=== PATIENT | female | born 1955 | race Caucasian/White ===

== ENCOUNTER 2023-07-18 12:29 | Outpatient (CLI) | payer MEDICARE, OTHER, SELFPAY | END 2023-07-18 12:30 | disposition home or self-care (01) | LOC: LKVREF 12:31 | PROVIDERS: PCP Physician Assistant Medical; Visit Provider Physician Assistant Medical | DX: E03.9 Hypothyroidism, unspecified (principal); R53.82 Chronic fatigue, unspecified; M85.80 Other specified disorders of bone density and structure, unspecified site; Z86.69 Personal history of other diseases of the nervous system and sense organs; Z13.1 Encounter for screening for diabetes mellitus; Z13.6 Encounter for screening for cardiovascular disorders | CPT/HCPCS: 80053; 80061; 82306; 82607; 84443 ==

== ENCOUNTER 2024-07-25 09:57 | Outpatient (CLI) | payer MEDICARE, OTHER, SELFPAY | END 2024-07-25 09:58 | disposition home or self-care (01) | PROVIDERS: PCP Physician Assistant Medical; Visit Provider Physician Assistant Medical | DX: K52.832 Lymphocytic colitis (principal); R53.83 Other fatigue; E03.9 Hypothyroidism, unspecified | CPT/HCPCS: 80053; 80061; 82306; 82607; 83540; 83550; 84443; 86140 ==

== ENCOUNTER 2024-07-25 13:16 | Outpatient (CLI) | payer MEDICARE, OTHER, SELFPAY ==
--- NOTE | 2024-07-25 13:30 | CRLHL7_ITS ---
For Patients: As a result of the Century Cures Act, medical imaging exams and procedure reports are released immediately into your electronic medical record. You may view this report before your referring provider. If you have questions, please contact your health care provider. DEXA BONE MINERAL DENSITY STUDY Reason for exam: Osteoporosis. Current height (inches): 62 Weight (lbs.): 130 Menopause age: 49 Ethnicity: White 1. Have you had a previous hip or vertebral fracture? No. 2. Have you had any fractures during your adult life which did not result from significant trauma (e.g., auto accident)? Yes. 3. Did either of your parents have a hip fracture? No. 4. Do you smoke? No. 5. Have you ever taken Glucocorticoids? No. 6. Do you have rheumatoid arthritis? No. 7. Do you have secondary osteoporosis? No. 8. Do you drink 3 or more alcoholic drinks per day? No. 9. Are you being treated for osteoporosis? No. 10. Have you ever taken any of the following medications: Actonel, Evista, Fosamax, Miacalcin, Reclast, Boniva, Forteo, HRT (i.e., estrogen/hormone therapy), Protelos, Prolia, Vitamin D, Calcium, other ??? please specify. ANSWER: Yes; Fosamax, Boniva, vitamin D, calcium. 11. Do you have any of the following medical conditions: Anorexia or bulimia, asthma or emphysema, end stage renal disease, hyperparathyroidism, any seizure disorders, cancer, inflammatory bowel diseases, hysterectomy, other ??? please specify. ANSWER: Yes; Inflammatory bowel disease, hysterectomy. 12. What was your maximum height (inches)? 63. 13. Do you perform weightbearing exercise regularly? Yes. 14. Do you regularly consume dairy products? Yes. 15. Do you drink caffeinated beverages? Yes. 16. At what age did your period start? 13. 17. Are you premenopausal? No. 18. How many full-term pregnancies have you had? 3. 19. Have you ever missed your period for more than 6 months in a row (not including or menopause)? Not provided. TECHNIQUE: Bone mineral density study was performed using the [employer]. FINDINGS: The results of the study expressed as bone mineral density (BMD) are as follows: Lumbar Spine L1 to L4: BMD: 0.862 g/cm2. T-score: -1.7. Z-score: 0.3. Neck Left: BMD: 0.563 g/cm2. T-score: -2.6. Z-score: -0.9. Right: BMD: 0.586 g/cm2. T-score: -2.4. Z-score: -0.7. Total Left: BMD: 0.733 g/cm2. T-score: -1.7. Z-score: -0.3. Right: BMD: 0.672 g/cm2. T-score: -2.2. Z-score: -0.8. IMPRESSION: Osteoporosis. COMPARISON: Compared with scan of 01/18/2018, the bone mineral density has decreased by 3.7% at the spine and increased by 0.8% at the hip. *Comparison exams done prior to 02/2020 were performed on different unit, [employer]. LUL RAMIREZ M.D. Diagnostic Radiologist [email or web address] Transcribed: 10:[address]/Dictated by: Lul Ramirez MD @ 07/26/2024 8:34:00 AM (Electronically Signed)
--- NOTE | 2024-07-25 14:00 | CRLHL7_ITS ---
For Patients: As a result of the Century Cures Act, medical imaging exams and procedure reports are released immediately into your electronic medical record. You may view this report before your referring provider. If you have questions, please contact your health care provider. BILATERAL SCREENING MAMMOGRAM WITH COMPUTER-AIDED DETECTION AND TOMOSYNTHESIS TECHNIQUE: CC and MLO views were obtained. These mammographic images have been obtained using full-field digital technique. These mammographic images were interpreted with the benefit of computer-aided detection. Breast Tomosynthesis was used in this interpretation. COMPARISON FILM: 03/16/19, 01/18/18, 04/08/15. FINDINGS: There are scattered areas of fibroglandular density. IMPRESSION: There is no radiographic evidence for malignancy. ASSESSMENT: BI-RADS Category 1: Negative RECOMMENDATION: Routine screening mammogram in 1 year. A lay language report of this examination will be provided to the patient. Lul Adhikari M.D. Diagnostic Radiologist [email or web address] SP/Dictated by: Llu Adhikari MD @ 07/26/2024 10:18:00 AM (Electronically Signed)
== END 2024-07-25 13:17 | disposition home or self-care (01) ==
PROVIDERS: PCP Physician Assistant Medical; Visit Provider Physician Assistant Medical
DX: Z00.00 Encounter for general adult medical examination without abnormal findings (principal); R53.83 Other fatigue; Z13.6 Encounter for screening for cardiovascular disorders; Z13.21 Encounter for screening for nutritional disorder; Z13.820 Encounter for screening for osteoporosis; Z12.31 Encounter for screening mammogram for malignant neoplasm of breast; M81.0 Age-related osteoporosis without current pathological fracture; M85.89 Other specified disorders of bone density and structure, multiple sites; Z78.0 Asymptomatic menopausal state
CPT/HCPCS: 77063; 77067; 77080; 80053; 80061; 82306; 82607; 84443; 86140

== ENCOUNTER 2024-09-04 12:57 | Outpatient (CLI) | payer MEDICARE, OTHER, SELFPAY | END 2024-09-04 12:58 | disposition home or self-care (01) | LOC: NFLDREF 09-05 10:44 | PROVIDERS: PCP Physician Assistant Medical; Referring Provider Physician Assistant Medical; Visit Provider Physician Assistant Medical | DX: E55.9 Vitamin D deficiency, unspecified (principal); D64.9 Anemia, unspecified | CPT/HCPCS: 82306; 83540; 83550; 86140 ==

== ENCOUNTER 2024-11-13 11:32 | Emergency (ER) | payer MEDICARE, OTHER, SELFPAY ==
--- OUTSIDE RECORDS SUMMARY | 2024-11-13 11:35 | XMS_ITS | Clinical Summary ---
[facility] Address [address] [address] Care Team Providers Care Bisque Ware Dipper Name Role Phone Tasia Wilder MD Primary Care Provider Source Comments You are receiving this document as you are listed as the primary care provider,follow-up provider, or the patient has been referred to you for consultation.This is in compliance with the Medicare and[facility], [facility] EHR Incentive Program,which states Providers who transition their patient to another setting of careor provider of care or refers their patient to another provider of care shouldprovide summary care record for each transition of care or referral. Kickboard Allergies Active Allergy Reactions Criticality Noted Date Comments Sulfa Antibiotics Rash 09/17/2017 Medications Ibandronate Sodium (BONIVA) 150 MG tablet Take 1 Tab by mouth every 4 weeks. 3 Tab 3 09/17/2017 Active estrogens, conjugated, (PREMARIN) 0.3 MG tablet Take 1 Tab by mouth daily. 90 Tab 3 09/17/2017 Active levothyroxine (SYNTHROID) 125 MCG tablet Take 1 Tab by mouth daily. 90 Tab 3 09/17/2017 Active polyethylene glycol 3350 (MIRALAX) powder Take 17 g by mouth two times a day. 1 day prior to test-between 4-6pm. Mix 8.3oz of Miralax with 64oz of PowerAde. Drink 1 8oz glass each 15min until gone 09/17/2017 Active calcium carbonate-vitam in D (CALCIUM 600 + D) 600-400 MG-UNIT tablet Take 1 Tab by mouth two times a day. 09/17/2017 Active citalopram (CELEXA) 10 MG tablet Take 1 Tab by mouth daily. 90 Tab 3 09/17/2017 Active aspirin EC (ASPIR-LOW) 81 MG enteric coated tablet Take 1 Tab by mouth daily. 3 09/17/2017 Active Multiple Vitamin (MULTI-DAY) Take by mouth. 09/17/2017 Active omega-3 fatty acids (MAXEPA,FISHOIL ) 1000 MG capsule Take 2 Caps by mouth daily. 09/17/2017 Active Ascorbic Acid (VITAMIN C) 500 MG CAPS Take by mouth. 09/17/2017 Active oxyCODONE-aceta minophen (PERCOCET) 5-325 MG tablet Take 1-2 Tabs by mouth every 6 hours as needed for Pain. 10 Tab 09/17/2017 Active Active Problems No known active problems Immunizations Immunization Administration Dates Next Due Fluzone Qiv Multidose Vial 0 .25 (6-35 Mos) 06/28/2017 Influenza (Flucelvax), Prese rv Free QIV 07/01/2019 Influenza IIV4 (Quadrivalent ) Fluad, 65+ Yrs 06/29/2023,07/13/2021 Influenza IIV4 (Quadrivalent ) Fluzone, 65+ Yrs 07/03/2022 Moderna Bivalent 12+ 07/03/2022 Moderna COVID-19 12+ 08/04/2023 Moderna Monovalent 12+ 03/06/2022,2020,09/22/2021,2020,12/12/2020 PCV13 (Prevnar) 03/04/2021 PCV20 (Thrneae83) 07/18/2023 Td (7+ yrs) 07/18/2023,07/26/2019(Deferred: Other) Zoster, Unspecified Formulation 07/26/2019(Defer red: Other) Social History Tobacco Use Types Packs/Day Years Used Date Smoking Tobacco: Never Smokeless Tobacco: Never Comments Unknown Sex and Gender Information Value Date Recorded Sex Assigned at Not on file Legal Sex Female 4:36 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 Gender Identity Not on file Sexual Orientation Not on file Last Filed Vital Signs Vital Sign Reading Time Taken Comments Blood Pressure 141/76 09/17/2017 3:33 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 Pulse 67 09/17/2017 3:33 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 Temperature 36.3 C (97.3 F) 09/17/2017 3:33 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 Respiratory Rate 16 09/17/2017 3:33 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 Oxygen Saturation 99% 09/17/2017 3:33 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 Inhaled Oxygen Concentration - - Weight 65.8 kg (145 lb) 09/17/2017 3:33 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 s tated weight Height 158.8 cm (5' 2.5) 09/17/2017 3:33 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 stated height Body Mass Index 26.1 09/17/2017 3:33 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 Plan of Treatment Health Maintenance Due Date Last Done Comments Colon Cancer Screening Plan Due 1955 Hep C Screening (Preventive Services) 1955 Medicare Annual Wellness Visit 1955 Mammogram 1955 Cholesterol 01/26/2001 Zoster/Shingles (1 of 2) 01/26/2006 Dexa 01/26/2021 DTaP/Tdap/Td (1 - Tdap) 07/19/2023 07/18/2023 COVID-19 Vaccine ( season) 2024 08/04/2023, 07/03/2022, 03/06/2022, Additional history exists Influenza (#1) 2024 06/29/2023, 04/2022, 07/13/2021, Additional history exists RSV (1 - 1-dose 75+ series) 01/26/2031 Pneumococcal 50+ Yrs Completed 07/18/2023, 03/04/20 21 HepA Aged Out No longer eligi ble based on patient's age to complete this topic HepB Aged Out No longer eligi ble based on patient's age to complete this topic Hib Aged Out No longer eligi ble based on patient's age to complete this topic IPV (Polio) Aged Out No longer eligi ble based on patient's age to complete this topic MCV4 Aged Out No longer eligi ble based on patient's age to complete this topic Meningococcal B Aged Out No longer el igible based on patient's age to complete this topic Insurance MEDICARE [facility] Care Teams Bisque Ware Dipper Relationship Specialty Start Date End Date Tasia Wilder MD [address] [place] [address] PCP - General Family Practice 08/15/17
--- OUTSIDE RECORDS SUMMARY | 2024-11-13 11:35 | XMS_ITS | Encounter Summary ---
Author Organization [facility] Address [address] [place] [address] Care Team Providers Care Heading Up Machine Operator Name Role Phone Tasia Wilder MD Primary Care Provider [phone] Encounter Details Date Type Department Care Team (Late st Contact Info) Description 09/17/2017 Correspondence [facility] [address] [facility] 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
--- NOTE | 2024-11-13 11:51 | CRLHL7_ITS ---
For Patients: As a result of the 21st Century Cures Act, medical imaging exams and procedure reports are released immediately into your electronic medical record. You may view this report before your referring provider. If you have questions, please contact your health care provider. Indication: Vertigo, head pounding Technique: MRI Brain: Multiplanar multisequence MRI brain, IAC protocol, obtained pre and post contrast. A total of 15 mL Dotarem IV contrast was used. MRA Head: 3D [id number] MR angiogram of the [id number] with 3D MIP projections were submitted. Comparison: None Findings: MRI Brain: No evidence for recent hemorrhage or infarct. No midline shift, hydrocephalus or herniation. Ventricles and cortical sulci are age-appropriate in configuration. Scattered small foci of FLAIR hyperintensity throughout the cerebral white matter, typical of migraine headaches or chronic microangiopathy. No pathologic brain parenchymal enhancement. No focal mass or suspicious lesion identified within the inner ear, internal auditory canals, or cerebellopontine angle cisterns. A branch of the left anterior inferior cerebellar artery contacts/slightly dorsally displaces the left 8th cranial nerve complex near the level of the porus acusticus. There is no pathologic enhancement of the 7th or 8th cranial nerves on either side. Midline structures are unremarkable. Grossly preserved major intracranial arterial flow voids. There is small cystic expansion along the lateral floor of the right Meckel`s cave, matching CSF signal, without associated enhancement or marrow signal change. No obstructive paranasal sinus disease. Trace nonspecific fluid at the right greater than left mastoid tips. Bilateral lens implants. MRA Head: The intracranial segments of the internal carotid arteries and basilar artery are widely patent. The anterior, middle and posterior cerebral arteries and proximal branches are unremarkable. No discrete aneurysm identified. No high-flow AV malformation is seen. Impression: MRI brain: 1. No evidence of acute intracranial abnormality. 2. Small foci of nonspecific white matter signal change, potentially sequela of migraine headaches or mild chronic microangiopathy. 3. Tortuous branch of the left anterior inferior cerebellar artery contacts/slightly dorsally displaces the left 8th cranial nerve complex at the level of the porus acusticus, of indeterminate clinical significance. 4. Cystic expansion along the lateral floor of the right Meckel`s cave, suggestive of tiny meningocele. MRA head: 1. No intracranial large vessel occlusion, high-grade stenosis, aneurysm or high-flow vascular malformation. Dictated by Ilana Miramontes MD @ 11/13/2024 2:31:15 PM (Electronically Signed)
[2024-11-13 11:54] VITALS: BP 147/81; PULSE 70; RESP 18; TEMP 36.5; O2SAT 97; BMI 23.5
--- NOTE | 2024-11-13 12:42 | ED_ITS ---
HPI - General Adult General Date Seen: 11/13/24 Chief complaint: Ear/Nose/Throat Problem Stated complaint: Dizziness, ear pain Time Seen by Provider: 11/13/24 11:35 History of Present Illness HPI narrative: Patient is a 69-year-old who presented to ENT today and sent here for further evaluation. She has been having increased dizziness/vertigo for the past week associated with a pounding sensation in her head. She has chronic tinnitus which is unchanged. She has had longstanding vertigo but she says it is quite a bit worse and this pounding sensation is new. She has not had other neurologic changes. Every once a while she feels like her vision is a little blurry but she has not had diplopia or loss of vision. She was sent here for MRI imaging to rule out acute process such as stroke, aneurysm, mass. Past medical history is reviewed, medications reviewed. She is not anticoagulated. She denies history of prior stroke or atrial fibrillation, coronary artery disease or diabetes. She does have a history of hypertension. Related Data Home Medications ?Medication ?Instructions ?Recorded ?Confirmed hyoscyamine sulfate 0.125 mg 0.125 mg sublingual Q4H PRN 07/12/22 11/13/24 sublingual tablet medical cannabis inhalation 07/12/22 11/13/24 Previous Rx's ?Medication ?Instructions ?Recorded conjugated estrogens 0.3 mg tablet 0.3 mg PO QDAY #90 tabs 07/25/24 (Premarin) levothyroxine 25 mcg tablet 50 mcg (2 x 25 mcg) PO QDAY #90 07/25/24 (Synthroid) tabs lisinopril 10 1 tab PO DAILY #90 tabs 07/25/24 mg-hydrochlorothiazide 12.5 mg tablet omeprazole 20 mg capsule,delayed 20 mg PO DAILY #90 caps 07/25/24 release ondansetron 4 mg disintegrating 4 mg translingual Q4-6H PRN nausea 07/25/24 tablet and vomiting #30 tabs cholecalciferol (vitamin D3) 1,250 1,250 mcg PO QWEEK #12 caps 07/30/24 mcg (50,000 unit) capsule ibandronate 150 mg tablet 150 mg PO MONTHLY #3 tabs 07/30/24 meclizine 25 mg tablet 25 mg PO TID PRN #15 tabs 11/13/24 Allergies Allergy/AdvReac Type Severity Reaction Status Date / Time Sulfa (Sulfonamide Allergy Verified 11/13/24 10:11 Antibiotics) Review of Systems Status of ROS: Reports: 10 or more systems reviewed and unremarkable except as noted in History and below [facility] Medical History (Updated 11/13/24 @ 15:01 by Simran Ashraf MD) Lymphocytic colitis ?K52.832 - Lymphocytic colitis (ICD-10) Major depressive disorder with single episode ?F32.9 - Major depressive disorder, single episode, unspecified (ICD-10) History of iron deficiency anemia ?Z86.2 - Personal history of diseases of the blood and blood-forming organs and certain disorders involving the immune mechanism (ICD-10) History of colonic polyps ?Z86.010 - Personal history of colonic polyps (ICD-10) Surgical History (Updated 05/04/22 @ 10:48 by Irving Anne) History of tubal ligation ?Z98.51 - Tubal ligation status (ICD-10) History of tonsillectomy ?Z90.89 - Acquired absence of other organs (ICD-10) History of sinus surgery ?Z98.890 - Other specified postprocedural states (ICD-10) History of hysterectomy ?Z90.710 - Acquired absence of both cervix and uterus (ICD-10) History of foot surgery ?Z98.890 - Other specified postprocedural states (ICD-10) Family History (Updated 07/18/23 @ 12:23 by Anne-Marie Vega PA-C) Father Lung cancer Mother CHF (congestive heart failure) Myocardial infarction Maternal Grandmother Colon cancer Breast cancer Sister Diabetes Social History (Updated 07/18/23 @ 12:22 by Anne-Marie Vega PA-C) Narrative: ( tami)- he had hx of kidney transplant. 3 adult kids, 2 step children Never tobacco user Alcohol: 3-5 glasses per week Smoking Status: Never smoker How often do you have a drink containing alcohol: never AUDIT-C Alcohol total score: 0 Non-prescribed substance use: denies use service: No Exam Narrative: Exam Narrative: Vital signs reviewed In general, alert, nontoxic elderly woman. She looks comfortable. Head: Normocephalic, atraumatic. Eyes: Sclera clear. She is status post cataract surgery bilaterally, pupils are not very reactive bilaterally. Extraocular movements are full, no nystagmus. ENT: Mucous membranes moist. Tongue is midline. Neck: Supple without adenopathy. Heart: Regular rate and rhythm without murmur. Lungs: Clear. No increased work of breathing, crackles or wheezes. Abdomen: Soft, nontender to palpation. Extremities: Well perfused, pulses intact. No significant edema. Neurologic: Alert, conversant. Speech fluent, face symmetric. Moves all extremities equally. Gait is stable. Cerebellar function intact finger-nose testing. Skin: Warm, dry well perfused. Affect: Normal. Const: Vital Signs, click to edit/add: Vital Signs - 24 hr 11/13/24 11:54 Temperature 97.7 F Pulse Rate [Pulse Oximeter] 70 Respiratory Rate 18 Blood Pressure [Ri ght Upper Arm] 147/81 H Pulse Oximetry 97 Oxygen Delivery Me thod Room Air Course Course ED Course: Will place an IV, MRI with and without contrast as well as MR angiogram of the head ordered. Will try some meclizine to see if that helps her symptomatic Keila. She has been taking Zofran at home. She feels improved after meclizine. Ambulatory without difficulty. MRI obtained and report reviewed. No significant findings, no evidence of stroke, mass, hemorrhage or aneurysm. Discussed with Dr. Kenney briefly, his office will contact her regarding follow-up. She is comfortable with discharge home. Return as needed for severe symptoms, inability to manage at home or other worsening. Vital Signs Vital signs: Initial Vital Signs Temperature 97.7 F 11/13/24 11:54 Temperature Source Temporal Artery Scan 11/13/24 11:54 Pulse Rate 70 11/13/24 11:54 Pulse Rhythm Regular 11/13/24 11:54 Respiratory Rate 18 11/13/24 11:54 Blood Pressure 147/81 H 11/13/24 11:54 Blood Pressure Mean 103 11/13/24 11:54 Pulse Oximetry 97 11/13/24 11:54 Oxygen Delivery Method Room Air 11/13/24 11:54 Vital Signs Temperature 97.7 F 11/13/24 11:54 Pulse Rate 70 11/13/24 11:54 Respiratory Rate 18 11/13/24 11:54 Blood Pressure 147/81 H 11/13/24 11:54 Pulse Oximetry 97 11/13/24 11:54 Oxygen Delivery Method Room Air 11/13/24 11:54 Temperature 97.7 F 11/13/24 11:54 Pulse Rate 70 11/13/24 11:54 Respiratory Rate 18 11/13/24 11:54 Blood Pressure 147/81 H 11/13/24 11:54 Pulse Oximetry 97 11/13/24 11:54 Oxygen Delivery Method Room Air 11/13/24 11:54 Medications Administered Medications: Discontinued Medications Generic Name Dose Route Start Last Admin Trade Name Freq PRN Reason Stop Dose Admin Meclizine HCl 25 mg 11/13/24 12:45 11/13/24 13:14 Meclizine Hcl 25 Mg Tablet PO 11/13/24 12:46 25 mg ONCE ONE Administration Medical Decision Making Imaging Data MR Brain: Attestation: I have reviewed the pertinent imaging results. Radiologist's impression: [place] [address] Diagnostic Imaging Report Patient: Maddison Birch MR#: [id number] : 1955 Acct:[id number] Loc: ED Service Date: 11/13/[address]: Ordering Physician: Simran Ashraf M.D. Date of Service: 11/13/24 Procedure(s): MR head/brain wo/w con Accession Number(s): [id number] cc: Simran Ashraf M.D.; Anne-Marie CARRION~ For Patients: As a result of the Cures Act, medical imaging exams and procedure reports are released immediately into your electronic medical record. You may view this report before your referring provider. If you have questions, please contact your health care provider. Indication: Vertigo, head pounding Technique: MRI Brain: Multiplanar multisequence MRI brain, IAC protocol, obtained pre and post contrast. A total of 15 mL Dotarem IV contrast was used. MRA Head: 3D [id number] MR angiogram of the [id number] with 3D MIP projections were submitted. Comparison: None Findings: MRI Brain: No evidence for recent hemorrhage or infarct. No midline shift, hydrocephalus or herniation. Ventricles and cortical sulci are age-appropriate in configuration. Scattered small foci of FLAIR hyperintensity throughout the cerebral white matter, typical of migraine headaches or chronic microangiopathy. No pathologic brain parenchymal enhancement. No focal mass or suspicious lesion identified within the inner ear, internal auditory canals, or cerebellopontine angle cisterns. A branch of the left anterior inferior cerebellar artery contacts/slightly dorsally displaces the left 8th cranial nerve complex near the level of the porus acusticus. There is no pathologic enhancement of the 7th or 8th cranial nerves on either side. Midline structures are unremarkable. Grossly preserved major intracranial arterial flow voids. There is small cystic expansion along the lateral floor of the right Meckel`s cave, matching CSF signal, without associated enhancement or marrow signal change. No obstructive paranasal sinus disease. Trace nonspecific fluid at the right greater than left mastoid tips. Bilateral lens implants. MRA Head: The intracranial segments of the internal carotid arteries and basilar artery are widely patent. The anterior, middle and posterior cerebral arteries and proximal branches are unremarkable. No discrete aneurysm identified. No high-flow AV malformation is seen. Impression: MRI brain: 1. No evidence of acute intracranial abnormality. 2. Small foci of nonspecific white matter signal change, potentially sequela of migraine headaches or mild chronic microangiopathy. 3. Tortuous branch of the left anterior inferior cerebellar artery contacts/slightly dorsally displaces the left 8th cranial nerve complex at the level of the porus acusticus, of indeterminate clinical significance. 4. Cystic expansion along the lateral floor of the right Meckel`s cave, suggestive of tiny meningocele. MRA head: 1. No intracranial large vessel occlusion, high-grade stenosis, aneurysm or high-flow vascular malformation. Dictated by Ilana Miramontes MD @ 11/13/2024 2:31:15 PM Discharge Plan Discharge Clinical Impression: Vertigo Patient Disposition: Home, Self-Care Condition: Improved Instructions: Vertigo (ED) Additional Instructions: You can continue to use Zofran for nausea if needed. Meclizine if needed for more significant veritigo. Dr. Quick office should reach out to you regarding follow up. Prescriptions: New meclizine 25 mg tablet 25 mg PO TID PRNQty: 15 0RF No Action medical cannabis inhalation hyoscyamine sulfate 0.125 mg tablet, sublingual 0.125 mg sublingual Q4H PRN Rx Instructions: PO/SL lisinopril-hydrochlorothiazide 10-12.5 mg tablet 1 tab PO DAILY Qty: 90 3RF Premarin 0.3 mg tablet 0.3 mg PO QDAY Qty: 90 3RF levothyroxine [Synthroid] 25 mcg tablet 50 mcg PO QDAY Qty: 90 3RF Rx Instructions: take two tablets daily for thyroid omeprazole 20 mg capsule,delayed release(DR/EC) 20 mg PO DAILY Qty: 90 3RF ondansetron 4 mg tablet,disintegrating 4 mg translingual Q4-6H PRN (Reason: nausea and vomiting) Qty: 30 2RF cholecalciferol (vitamin D3) 1,250 mcg (50,000 unit) capsule 1,250 mcg PO QWEEK Qty: 12 0RF Rx Instructions: once weekly ibandronate 150 mg tablet 150 mg PO MONTHLY Qty: 3 4RF Rx Instructions: one tablet once monthly for bone health Follow Up/Referrals: Anne-Marie Vega PA-C [Primary Care Provider] - Stand Alone Forms: [employer] Info Instructions
[2024-11-13] MEDS: MECLIZINE HCL 25 MG TABLET PO (13:14)
--- OUTSIDE RECORDS SUMMARY | 2024-11-13 13:31 | XMS_ITS | Encounter Summary ---
Author Organization [facility] Address [address] [place] [address] Care Team Providers Care Sales Representative Jewelry Name Role Phone Tasia Wilder MD Primary Care Provider [phone] Encounter Details Date Type Department Care Team (Late st Contact Info) Description 09/17/2017 Correspondence [facility] [address] 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
--- OUTSIDE RECORDS SUMMARY | 2024-11-13 13:31 | XMS_ITS | Clinical Summary ---
[facility] Address [address], [place] [address] Care Team Providers Care Systems Analyst Developer Name Role Phone Tasia Wilder MD Primary Care Provider Source Comments You are receiving this document as you are listed as the primary care provider,follow-up provider, or the patient has been referred to you for consultation.This is in compliance with the Medicare and[facility] EHR Incentive Program,which states Providers who transition their patient to another setting of careor provider of care or refers their patient to another provider of care shouldprovide summary care record for each transition of care or referral. 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 Gender Identity Not on file Sexual Orientation Not on file Last Filed Vital Signs Vital Sign Reading Time Taken Comments Blood Pressure 141/76 09/17/2017 3:33 PM INDUSTRIAL SAFETY ENGINEER Pulse 67 09/17/2017 3:33 PM INDUSTRIAL SAFETY ENGINEER Temperature 36.3 C (97.3 F) 09/17/2017 3:33 PM INDUSTRIAL SAFETY ENGINEER Respiratory Rate 16 09/17/2017 3:33 PM INDUSTRIAL SAFETY ENGINEER Oxygen Saturation 99% 09/17/2017 3:33 PM INDUSTRIAL SAFETY ENGINEER Inhaled Oxygen Concentration - - Weight 65.8 kg (145 lb) 09/17/2017 3:33 PM INDUSTRIAL SAFETY ENGINEER s tated weight Height 158.8 cm (5' 2.5) 09/17/2017 3:33 PM INDUSTRIAL SAFETY ENGINEER stated height Body Mass Index 26.1 09/17/2017 3:33 PM INDUSTRIAL SAFETY ENGINEER Plan of Treatment Health Maintenance Due Date [...] age to complete this topic Insurance MEDICARE [facility] Care Teams Systems Analyst Developer Relationship Specialty Start Date End Date Tasia Wilder MD [address] [place] [address] PCP - General Family Practice 08/15/17
== END 2024-11-13 15:04 | disposition home or self-care (01) ==
PROVIDERS: Emergency Provider Emergency Medicine; PCP Physician Assistant Medical
DX: R42 Dizziness and giddiness (principal)
CPT/HCPCS: 70544; 70553; 99284; A9270; A9575

== ENCOUNTER 2025-03-26 10:05 | Outpatient (CLI) | payer MEDICARE, OTHER, SELFPAY | END 2025-03-26 10:06 | disposition home or self-care (01) | PROVIDERS: PCP Physician Assistant Medical; Visit Provider Emergency Medicine | DX: M79.642 Pain in left hand (principal) | CPT/HCPCS: 86140; 86200; 86618 ==

== ENCOUNTER 2025-07-12 11:04 | Outpatient (CLI) | payer MEDICARE, OTHER, SELFPAY | END 2025-07-12 11:05 | disposition home or self-care (01) | LOC: NFLDREF 11:05 | PROVIDERS: PCP Physician Assistant Medical; Visit Provider Physician Assistant Medical | DX: M25.641 Stiffness of right hand, not elsewhere classified (principal); M25.642 Stiffness of left hand, not elsewhere classified | CPT/HCPCS: 84550; 86038; 86431; 86812; 87338 ==

== ENCOUNTER 2025-07-15 09:59 | Outpatient (CLI) | payer MEDICARE, OTHER, SELFPAY | END 2025-07-15 10:00 | disposition home or self-care (01) | LOC: NFLDREF 07-17 10:35 | PROVIDERS: PCP Physician Assistant Medical; Referring Provider Physician Assistant Medical; Visit Provider Physician Assistant Medical | DX: E03.9 Hypothyroidism, unspecified (principal); D64.9 Anemia, unspecified; E55.9 Vitamin D deficiency, unspecified | CPT/HCPCS: 80053; 80061; 82306; 82607; 84443; 87338 ==

== ENCOUNTER 2025-07-29 15:23 | Outpatient (CLI) | payer MEDICARE, OTHER, SELFPAY ==
--- NOTE | 2025-07-29 16:00 | CRLHL7_ITS ---
For Patients: As a result of the Century Cures Act, medical imaging exams and procedure reports are released immediately into your electronic medical record. You may view this report before your referring provider. If you have questions, please contact your health care provider. INDICATION: Abdominal pain and, history of colitis. TECHNIQUE: CT abdomen and pelvis following administration of 66 cc Isovue 370 IV contrast. Water PO contrast also provided. COMPARISON: CT abdomen and pelvis 06/08/2021. FINDINGS: Lower chest: No pulmonary infiltrate, pleural effusion, or pneumothorax. Base of the heart, incompletely imaged distal thoracic esophagus, and incompletely imaged descending thoracic aorta are normal. Liver: No worrisome hepatic lesion. Non-cirrhotic morphology. Gallbladder and bile ducts: No intrahepatic or extrahepatic biliary duct dilatation. Gallbladder is within normal limits. No visible gallstones. Pancreas: No focal masses. No pancreatic duct dilatation. No peripancreatic inflammation. Spleen: Normal in size. No masses. Adrenal glands: Within normal limits. Kidneys: Kidneys enhance symmetrically. No hydronephrosis or hydroureter. No renal calculi. No worrisome renal lesions. Stable subcentimeter hypodense lesion off the left kidney interpolar region too small to characterize but statistically a simple cyst. GI tract: Moderate amount of liquid stool throughout the colon. No abnormal wall thickening or visualized mass. No finding to suggest small or large bowel obstruction. Normal appendix. Vasculature: Minimal aortoiliac atherosclerosis. No abdominal aortic aneurysm. Patent portal venous system. Lymph nodes: No lymphadenopathy. Peritoneum/Retroperitoneum: No free air or significant free fluid. Pelvic organs/Bladder: Normal urinary bladder. Surgically absent uterus and adnexal structures. Bones: No acute fractures. No worrisome osseous lesions. Mild degenerative changes of the spine. Soft tissues: Small fat containing umbilical hernia. No subcutaneous or intramuscular collection or mass. IMPRESSION: 1. Moderate amount of liquid stool throughout the colon. No evidence colitis. 2. No additional abnormalities. Please note that all CT scans at this facility use dose modulation, iterative reconstruction, and/or weight-based dosing when appropriate to reduce radiation dose to as low as reasonably achievable. Dictated by Jose Mcdaniels MD @ 07/30/2025 9:54:36 AM (Electronically Signed)
--- NOTE | 2025-07-29 16:40 | CRLHL7_ITS ---
For Patients: As a result of the Century Cures Act, medical imaging exams and procedure reports are released immediately into your electronic medical record. You may view this report before your referring provider. If you have questions, please contact your health care provider. INDICATION: BILATERAL SCREENING MAMMORAM, ASYMPTOMATIC 70 Y/O FEMALE COMPARISON: 07/25/2024, 03/19/2019, 01/18/2018 TECHNIQUE: Digital mammogram in CC and MLO projections including computer-aided detection (CAD) and tomosynthesis. BREAST COMPOSITION: There are scattered areas of fibroglandular density. FINDINGS: No suspicious findings. ASSESSMENT: BI-RADS 1 Negative RECOMMENDATION: Annual screening mammogram. A lay language report of this examination will be provided to the patient. Dictated by: Lul Adhikari MD @ 07/30/2025 10:14:55 (Electronically Signed)
== END 2025-07-29 15:24 | disposition home or self-care (01) ==
LOC: CT 15:24
PROVIDERS: PCP Physician Assistant Medical; Visit Provider Physician Assistant Medical
DX: Z12.31 Encounter for screening mammogram for malignant neoplasm of breast (principal); R10.9 Unspecified abdominal pain
CPT/HCPCS: 74177; 77063; 77067; Q9967